=== PATIENT | male | born 1955 | race Two or more races ===

== ENCOUNTER 2025-01-23 12:18 | Emergency (ER) | payer MEDICAID ==
[~2025-01-23] VITALS: Ht 180.3 cm; Wt 70.0 kg
[2025-01-23 12:23] VITALS: O2SAT 98
[2025-01-23] MEDS: LIDOCAINE HCL 1% 20ML VIAL INFIL ONE (13:04)
[2025-01-23] MEDS: HYDROCODONE/ACETAMINOPHEN 5/325MG TABLET PO ONE (13:04)
[2025-01-23] MEDS: KETOROLAC 30MG/ML VIAL IM ONE (14:36)
[2025-01-23] MEDS: ACETAMINOPHEN 500MG TABLET PO ONE (14:36)
[2025-01-23] MEDS: TETANUS, DIPHTHERIA, PERTUSSIS VAC/PF 0.5ML (>10YR OLD) IM ONE (14:37)
[2025-01-23] MEDS ORDERED: CEFAZOLIN SODIUM 1000MG/VIAL IM SCH (15:00)
[2025-01-23 16:15] LABS: BASOPHILS % 0.7 % (0.0-2.0); EOSINOPHILS % 0.2 % (0.0-5.0); HEMATOCRIT. 41.8 % (42.0-52.0); HEMOGLOBIN. 14.2 g/dL (14.0-18.0); LYMPHOCYTES % 17.6 % (20.0-50.0); MEAN PLATELET VOLUME 8.1 fl (7.4-10.4); MONOCYTES % 5.9 % (2.0-8.0); NEUTROPHILS % 75.6 % (40.0-76.0); PLATELET 283 x1000/uL (130-400); RED BLOOD CELL COUNT 4.40 mill/uL (4.7-6.1); RED CELL DISTRIBUTION WIDTH 13.3 % (11.6-14.6)
[2025-01-23 16:31] LABS: CREATININE 0.8 mg/dL (0.6-1.3); UREA NITROGEN BLOOD 8 mg/dL (9-23)
[2025-01-23 16:32] LABS: ASPARTATE AMINOTRANSFERASE 16 IU/L (<34)
[2025-01-23 16:33] LABS: BILIRUBIN TOTAL 0.8 mg/dL (0.1-1.0); PROTEIN TOTAL 6.9 g/dL (6.0-8.3)
[2025-01-23] MEDS ORDERED: DOCUSATE SODIUM 100MG CAPSULE PO PRN (17:00)
[2025-01-23] MEDS ORDERED: ACETAMINOPHEN 325MG TABLET PO PRN ×2 (17:00)
[2025-01-23] MEDS ORDERED: GUAIFENESIN 200MG/10ML SUGAR FREE UDC PO PRN (17:00)
[2025-01-23] MEDS ORDERED: NALOXONE HCL 0.4MG/ML VIAL IV PRN (17:45)
[2025-01-23] MEDS ORDERED: TRAMADOL 50MG TABLET PO PRN (17:45)
[2025-01-23] MEDS ORDERED: KETOROLAC 30MG/ML VIAL IV PRN (17:45)
[2025-01-23] MEDS: CEFAZOLIN 1000MG PREMIX 50 ML IV ONE (18:59)
[2025-01-23 19:20] VITALS: BP 147/99; PULSE 84; RESP 18; TEMP 36.8; O2SAT 98
[2025-01-23] MEDS ORDERED: CEFAZOLIN SODIUM 1000MG/VIAL IV SCH (22:00)
== END 2025-01-23 19:20 | disposition left against medical advice (07) ==
LOC: ER 12:18 → EDBEDREQTM 16:44 → EDBEDREQ 16:44 → ER 19:20 → CMPBEDREQ 01-24 18:40
DX: S61.011A Laceration without foreign body of right thumb without damage to nail, initial encounter (principal); S61.212A Laceration without foreign body of right middle finger without damage to nail, initial encounter; S61.210A Laceration without foreign body of right index finger without damage to nail, initial encounter; S61.214A Laceration without foreign body of right ring finger without damage to nail, initial encounter; W31.1XXA Contact with metalworking machines, initial encounter; Y93.89 Activity, other specified; Y92.89 Other specified places as the place of occurrence of the external cause; Y99.8 Other external cause status
CPT/HCPCS: 99284; 96365; 80053; 85025; 36415; 73130; 90715; 12005; 90471; 96372; J1885; J0690; J2003